=== PATIENT | female | born 1950 | race Two or more races ===

== ENCOUNTER 2025-03-11 13:17 | Inpatient (IN) | payer MEDICARE, BC ==
[~2025-03-11] VITALS: Ht 154.9 cm; Wt 92.7 kg
--- NOTE | 2025-03-11 14:30 | DVH ---
CLINICAL INDICATION: Pain, fracture TECHNIQUE: 3 radiographic views of the right shoulder were obtained. Comparison: None FINDINGS/IMPRESSION: Comminuted and displaced humeral head fracture with anterior inferior shoulder dislocation.
--- NOTE | 2025-03-11 14:32 | ED.PDOC ---
History of Present Illness HPI Comments 74-year-old female presents to the ER with a prior medical history of right shoulder fracture, TIA, AFib, anxiety, depression: Surgical history of cholecystectomy, in the chief complaint of upper extremity. In the has a slip and fall on Tuesday and went to [facility] ER where she had a T of the head and an x-ray as well wear the found out that the patient had a fractured her right shoulder was given a sling, then sent home. Patient went to see her PCP afterwards which is Dr. Collins, and was sent to [facility] with the patient has bruising on the left knee, guarding the right shoulder were this is and refusing to let employ use touch the extremity. De nies chills, fever, N/V/D, SOB, CP. No other associated symptoms, modifiers, recent injuries or sick contacts present at this time. 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 CORRUGATOR OPERATOR HELPER History Family History Family History: Reviewed,noncontributory to illness, Unknown Social History Smoker: Non-Smoker Alcohol: Denies ETOH Use Drugs: Denies Drug Use Lives In: Home Constitutional: denies: chills, diaphoresis, fatigue, fever, malaise, sweats, weakness, others EENTM: denies: blurred vision, double vision, ear bleeding, ear discharge, ear drainage, ear pain, ear ringing, eye pain, eye redness, hearing loss, mouth pain, mouth swelling, nasal discharge, nose bleeding, nose congestion, nose pain, photophobia, tearing, throat pain, throat swelling, voice changes, others Respiratory: denies: cough, hemoptysis, orthopnea, SOB at rest, shortness of breath, SOB with excertion, stridor, wheezing, others Cardiovascular: denies: chest pain, dizzy spells, diaphoresis, Dyspnea on exertion, edema, irregular heart beat, left arm pain, lightheadedness, palpitations, PND, syncope, others Gastrointestinal: denies: abdomen distended, abdominal pain, blood streaked bowels, constipated, diarrhea, dysphagia, difficulty swallowing, hematemesis, melena, nausea, poor appetite, poor fluid intake, rectal bleeding, rectal pain, vomiting, others Genitourinary: denies: abnormal vagina bleeding, burning, dyspareunia, dysuria, flank pain, frequency, hematuria, incontinence, pain, , vagina d ischarge, urgency, others Neurological: denies: dizziness, fainting, headache, left sided numbness, left sided weakness, numbness, paresthesia, pre-existing deficit, right sided numbness, right sided weakness, seizure, speech problems, tingling, tremors, weakness, others Musculoskeletal: reports: others (Right shoulder it is fractured); denies: back pain, gout, joint pain, joint swelling, muscle pain, muscle stiffness, neck pain Integumetry: reports: bruises (Left knee); denies: change in color, change in hair/nails, dryness, laceration, lesions, lumps, rash, wounds, others Allergic/Immunocompromised: denies: Difficulty Healing, Frequent Infections, Hives, Itching, others Hematologic/Lymphatic: denies: anemia, blood clots, easy bleeding, easy bruising, swollen glands, others Endocrine: denies: excessive hunger, excessive sweating, excessive thirst, excessive urination, flushing, intolerance to cold, intolerance to heat, unexplained weight gain, unexplained weight loss, others Psychiatric: denies: anxiety, bipolar disorder, depression, hopeless, panic disorder, schizophrenia, sleepless, suicidal, others All Other Systems: Reviewed and Negative Physical Exam Exam Comments Bruising on the left knee, guarding right shoulder and refusing to let employees touch the extremity General Appearance: No Apparent Distress, Normal HEENT: Normal ENT Inspection, Pharynx Normal, TMs Normal Neck: Full Range of Motion, Non-Tender, Normal, Normal Inspection Respiratory: Chest Non-Tender, Lungs Clear, No Accessory Muscle Use, No Respiratory Distress, Normal Breath Sounds Cardiovascular: No Edema, No JVD, No Murmur, No Gallop, Normal Peripheral Pulses, Regular Rate/Rhythm Breast Exam: Deferred Gastrointestinal: No Organomegaly, Non Tender, No Pulsatile Mass, Normal Bowel Sounds, Soft Genitalia: Deferred Pelvic: Deferred Rectal: Deferred Extremities: No calf tenderness, Normal capillary refill, Normal inspection, Normal range of motion, Non-tender, No pedal edema Musculoskeletal : Apperance: Normal Neurologic: Alert, senior planner II-XII nml as Tested, No Motor Deficits, Normal Affect, Normal Mood, No Sensory Deficits Cerebellar Function: Normal Reflexes: Normal Skin: Dry, Normal Color, Warm Lymphatic: No Adenopathy Was a procedure done? Was a procedure done?: No Differential Dx Considerations may include: shoulder fracture, shoulder dislocation, hematoma, sprain, strain, contusion, neurovascular injuries X-Ray, Labs, Meds, VS Lab Test 03/11/25 14:28 Range/Units White Blood Count Pending Red Blood Count Pending Hemoglobin Pending Hematocrit Pending Mean Corpuscular Volume Pending Mean Corpuscular Hemoglobin Pending Mean Corpuscular Hemoglobin Concent Pending Red Cell Distribution Width Pending Platelet Count Pending Mean Platelet Volume Pending Neutrophils (%) (Auto) Pending Lymphocytes (%) (Auto) Pending Monocytes (%) (Auto) Pending Basophils (%) (Auto) Pending Neutrophils # (Auto) Pending Lymphocytes # (Auto) Pending Monocytes # (Auto) Pending Sodium Level Pending Potassium Level Pending Chloride Level Pending Carbon Dioxide Level Pending Anion Gap Pending Blood Urea Nitrogen Pending Creatinine Pending Glomerular Filtration Rate Calc Pending BUN/Creatinine Ratio Pending Serum Glucose Pending Calcium Level Pending Time of 1ST Reevaluation: 14:40 Reevaluation 1ST: Unchanged Consultation: Other (Dr Pham) Patient Education/Counseling: Diagnosis, Treatment, Prognosis, Need For Follow Up Family Education/Counseling: No Family Present SEPSIS Sepsis Screen Physician Orders Complete Blood Count (03/11/25 14:00) Basic Metabolic Panel (03/11/25 14:00) R Shoulder 2+ View Xray (03/11/25 14:00) Laboratory Tests Test 03/11/25 14:28 White Blood Count Pending Departure 1 Departure Time of Disposition: 14:37 Impression: Primary Impression: Humeral fracture Disposition: ADMITTED INPATIENT Admit to: Med Surg Condition: Serious Discharged With: Self Critical Care Note Critical Care Time?: No Stability Stability form required: No I personally scribed for ERINN SHARMA MD ([email or web address]) on 03/11/25 at 14:32. E lectronically submitted by Everton Hansen ([email or web address]). ERINN SHARMA MD Mar 11, 2025 14:32
[2025-03-11 14:43] LABS: Hematocrit 40.2 % (36.0-46.0); Hemoglobin 13.3 g/dL (12.2-16.2); Mean Corpuscular Hemoglobin 29.2 pg (28.0-32.0); Mean Corpuscular Volume 88.2 fL (80.0-100.0); Nucleated Red Blood Cells % 0.0 %
[2025-03-11 14:50] LABS: Chloride 106 mmol/L (98-107); Sodium 140 mmol/L (136-145)
[2025-03-11 14:51] LABS: Anion Gap 8 (5-15); Calcium 9.6 mg/dL (8.7-10.4); Carbon Dioxide 26 mmol/L (20-31)
[2025-03-11 14:56] LABS: BUN/Creatinine Ratio 27.6 (10.0-20.0)
[2025-03-11 15:04] LABS: Blood Urea Nitrogen 24 mg/dL (9-23); Glucose 155 mg/dL (74-106); Potassium 3.5 mmol/L (3.5-5.1)
[2025-03-11] MEDS: fentaNYL CITRATE 100 MCG/2 ML VL IV ONE (15:45)
--- NOTE | 2025-03-11 16:26 | DVHHP2 ---
Admitting Diagnosis: Right shoulder fracture History of Present Illness 74 y/o female patient presents with right shoulder fracture. Patient states she had a fall on Tuesday and was seen at [facility] where she was dx with right shoulder fracture. Patient was then seen by her PCP Dr. Collins who referred her to this facility. While in the emergency department the patient was evaluated by the provider, As per provider: Labs, vital signs, and imagining monitored. Patient will be admitted for further evaluation and treatment. I discussed admission with the patient/family and is in agreement to treatment plan. Allergies: Coded Allergies: Codeine (Verified Allergy, Unknown, 03/11/25) Home Meds Reported Medications Pantoprazole Sodium Sesquihydr (Protonix) 40 Mg Tab, 40 MG PO DAILY, #30 TAB 03/12/25 Lorazepam (Lorazepam) 1 Mg Tab, 1 TAB PO TID, #90 TAB 03/12/25 Sertraline Hcl (Sertraline Hcl) 100 Mg Tab, 1 TAB PO BID 03/11/25 Diltiazem HCl Coated Beads (Diltiazem Hydrochloride E) 180 Mg Cap, 1 CAP PO DAILY 03/11/25 Losartan Potassium (Losartan Potassium) 25 Mg Tab, 1 TAB PO DAILY 03/11/25 Current Medications Current Medications Medications (Trade) Dose Ordered Sig/Carolann Route PRN Reason Start Time Stop Time Status Last Admin Pantoprazole Sodium (Protonix) 40 mg DAILY IV 03/12/25 10:00 03/12/25 09:12 Losartan Potassium (Cozaar Tablet) 25 mg DAILY PO 03/12/25 10:00 03/12/25 09:15 Diltiazem HCl (Cardizem LA Capsule) 180 mg DAILY PO 03/12/25 10:00 03/12/25 09:15 Sertraline HCl (Zoloft) 100 mg BID PO 03/11/25 22:00 03/12/25 09:15 Sotalol HCl (Betapace) 80 mg BID PO 03/12/25 22:00 Sodium Chloride 1,000 ml @ 60 mls/hr [id number] IV 03/12/25 10:00 03/12/25 10:19 DC Digoxin (Lanoxin Tablet) 0.125 mg DAILY PO 03/13/25 10:00 Review of Systems Constitutional: denies chills, denies fever, denies malaise Eyes: denies eye pain, denies vision change ENT: denies ear pain, denies headache, denies nasal congestion, denies painful swallowing, denies voice change Cardiovascular: denies chest pain, denies edema, denies orthopnea, denies palp itations, denies paroxysmal nocturnal dyspnea Respiratory: denies cough, denies shortness of breath Gastrointestinal: denies constipation, denies diarrhea, denies nausea, denies vomiting Genitourinary: denies dysuria, denies frequent urination, denies urethral discharge Musculoskeletal: denies back pain, denies joint pain, denies muscle pain Skin: denies bruising, denies itching, denies rash Neurological: denies focal weakness, denies headache, denies sensory changes Psychiatric: denies anxiety, denies depression Endocrine: denies polydipsia, denies polyuria Hematologic/Lymphatic: denies easy bleeding, denies easy bruising, denies enlarged lymph nodes Allergic/Immunologic: denies allergy, denies hives Vital Signs Vital Signs Date Time Temp Pulse Resp B/P (MAP) Pulse Ox O2 Delivery O2 Flow Rate FiO2 03/12/25 17:17 97.9 98 20 119/64 (82) 96 97.9 03/12/25 08:00 Room Air* 0 21 Physical Exam General Appearance: alert, no distress HEENT: EOMI, PERRLA, normal external inspect of ears, no icterus, no nasal drainage Neck: no carotid bruit, no jugular venous distention (JVD), no lymphadenopathy Chest: normal thorax Respiratory: clear to auscultation, normal air movement Cardiovascular: regular rate and rhythm, no diastolic murmur, no jugular venous distention (JVD), no rub, no systolic murmur Abdominal: soft, no hepatomegaly, no mass, no splenomegaly, no tenderness Genitourinary: grossly normal external Musculoskeletal: no joint tenderness, no swelling Extremities: normal pulses, no calf tenderness, no clubbing, no cyanosis, no edema Skin: no bruising, no jaundice, no rash Neurological: alert, No focal deficit SEPSIS Sepsis Screen Date sepsis recognized/suspect: Mar 11, 2025 Time Sepsis recognized/suspect: 1342 Recent Procedure: No On Antibiotic Therapy: No Respiratory Rate >20: No Heart Rate >90: Yes Temp<36 C (96.8 F) or >38.3 C: No SBP <90 or MAP <65 mmHG: No New Acute Mental Status Change: No Is the patient on CPAP, BIPAP,: No Physician Orders R Shoulder 2+ View Xray (03/11/25 14:00) Admit (03/11/25 16:19) Code Status (03/11/25 16:19) Hydrocodone-Acet 5/325mg Tab (Elmer 5/32 (03/11/25 16:30) Ondansetron Hcl (Zofran) (03/11/25 16:30) Condition: Stable (03/11/25 16:19) Acetaminophen Tablet (Tylenol Tablet) (03/11/25 16:30) Sequential Compression Device (03/11/25 ) Nitroglycerin Sublingual (Ntrostat Subli (03/11/25 16:30) Stat Ekg For Chest Pain (03/11/25 16:19) Notify Md Of Changes From Base (03/11/25 16:19) Bank Boss For 24 Hours (03/11/25 16:19) Emergency Dysrhythmia Protocol (03/11/25 16:19) Rhythm Strips Once Every Shift (03/11/25 16:19) Oxygen By Nasal Cannula (03/11/25 16:19) *Consult Dr. Collins (03/11/25 16:19) *Consult Dr. Saleem Saunders (03/11/25 16:19) Pantoprazole (Protonix) (03/12/25 10:00) Hydromorphone Injection (Dilaudid Inject (03/11/25 16:30) Diphenhdramine Injection (Benadryl Injec (03/11/25 16:30) Hydralazine Injection (Apresoline Inject (03/11/25 16:30) Lactated Ringer's (03/11/25 16:30) Losartan Tablet (Cozaar Tablet) (03/12/25 10:00) Diltiazem Er Capsule (Cardizem La Capsul (03/12/25 10:00) Sertraline Hcl (Zoloft) (03/11/25 22:00) * Broadcast Meteorologist Consult (03/12/25 ) Chest Xray 1 View (03/12/25 06:14) Ct R Shoulder Wo Contrast (03/12/25 06:14) Npo (Nothing By Mouth) Diet (03/13/25 Breakfast) Obtain Consent For: (03/12/25 06:14) Obtain Consent For Anesthesia (03/12/25 06:14) Sotalol Hcl (Betapace) (03/12/25 22:00) Echo 2d Mode Cardiac Dop (03/12/25 09:51) Digoxin Tablet (Lanoxin Tablet) (03/13/25 10:00) Vital Signs Date Time Temp Pulse Resp B/P (MAP) Pulse Ox O2 Delivery O2 Flow Rate FiO2 03/12/25 17:17 97.9 98 20 119/64 (82) 96 97.9 03/12/25 14:51 98 20 119/64 03/12/25 14:21 82 16 118/67 03/12/25 13:00 97.9 104 22 127/69 (88) 97 97.9 03/12/25 12:34 110 03/12/25 11:53 130 114/65 03/12/25 09:15 109 137/68 03/12/25 09:15 137/68 03/12/25 09:00 97.7 102 19 118/75 (89) 94 97.7 03/12/25 08:00 117 03/12/25 08:00 115 Room Air* 0 21 03/12/25 07:09 108 17 137/68 03/12/25 06:39 109 19 137/68 03/12/25 05:00 97.4 119 16 122/85 (97) 94 97.4 03/12/25 01:00 117 16 126/73 (90) 95 03/12/25 00:37 117 16 126/73 03/12/25 00:07 114 17 138/81 03/11/25 23:37 98.9 110 17 138/81 (100) 96 98.9 03/11/25 23:08 Room Air* 0 21 03/11/25 23:08 98.9 110 17 138/81 (100) 96 98.9 03/11/25 23:08 98.9 110 17 138/81 (100) 96 98.9 03/11/25 21:03 109 16 116/78 03/11/25 20:40 111 17 116/78 03/11/25 20:38 111 17 116/78 (91) 96 03/11/25 19:18 98.5 113 20 121/89 (100) 94 98.5 03/11/25 18:09 98.6 102 20 130/76 (94) 100 98.6 03/11/25 18:09 102 20 96 Room Air 03/11/25 15:45 123/74 03/11/25 14:55 Room Air* 0 21 03/11/25 13:42 98.3 114 20 123/84 (97) 98 98.3 Laboratory Tests Test 03/11/25 14:28 03/12/25 06:33 White Blood Count 9.7 10^3/uL (4.4-10.8) 7.0 10^3/uL (4.4-10.8) # Medications Medications Dose Ordered Sig/Carolann Route Start Time Stop Time Status Last Admin Dose Admin Digoxin 0.125 mg ONCE ONCE PO 03/12/25 11:45 03/12/25 12:14 DC 03/12/25 12:34 Diltiazem HCl 180 mg DAILY PO 03/12/25 10:00 03/12/25 09:15 Losartan Potassium 25 mg DAILY PO 03/12/25 10:00 03/12/25 09:15 Pantoprazole Sodium 40 mg DAILY IV 03/12/25 10:00 03/12/25 09:12 Sotalol HCl 80 mg ONCE ONCE PO 03/12/25 10:45 03/12/25 10:46 DC 03/12/25 11:53 Results Labs Test 03/12/25 08:28 03/12/25 06:33 Range/Units Prothrombin Time 10.4 9.3-11.8 sec Prothrombin Time INR 0.98 0.9-1.15 White Blood Count 7.0 # 4.4-10.8 10^3/uL Red Blood Count 4.18 4.0-5.20 10^6/uL Hemoglobin 12.2 12.2-16.2 g/dL Hematocrit 37.0 36.0-46.0 % Mean Corpuscular Volume 88.4 80.0-100.0 fL Mean Corpuscular Hemoglobin 29.2 28.0-32.0 pg Mean Corpuscular Hemoglobin Concent 33.0 32.0-36.0 g/dL Red Cell Distribution Width 15.1 H 11.8-14.3 % Platelet Count 182 140-450 10^3/uL Mean Platelet Volume 7.5 6.9-10.8 fL Neutrophils (%) (Auto) 72.0 37.0-80.0 % Lymphocytes (%) (Auto) 15.4 10.0-50.0 % Monocytes (%) (Auto) 9.3 0.0-12.0 % Eosinophils (%) (Auto) 2.9 0.0-7.0 % Basophils (%) (Auto) 0.4 0.0-2.0 % Neutrophils # (Auto) 5.0 1.6-8.6 10 ^3/uL Lymphocytes # (Auto) 1.1 0.4-5.4 10 ^3/uL Monocytes # (Auto) 0.6 0-1.3 10 ^3/uL Eosinophils # (Auto) 0.2 0-0.8 10 ^3/uL Basophils # (Auto) 0 0-0.2 10 ^3/uL Nucleated Red Blood Cells 0.0 % Sodium Level 142 136-145 mmol/L Potassium Level 3.3 L 3.5-5.1 mmol/L Chloride Level 106 98-107 mmol/L Carbon Dioxide Level 27 20-31 mmol/L Anion Gap 9 5-15 Blood Urea Nitrogen 25 H 9-23 mg/dL Creatinine 0.65 0.550-1.02 mg/dL Glomerular Filtration Rate Calc 93 >90 mL/min BUN/Creatinine Ratio 38.5 H 10.0-20.0 Serum Glucose 116 H 74-106 mg/dL Calcium Level 9.1 8.7-10.4 mg/dL Total Bilirubin 1.3 H 0.2-1.0 mg/dL Aspartate Amino Transferase (AST) 125 H 13-40 U/L Alanine Aminotransferase (ALT) 102 H 7-40 U/L Alkaline Phosphatase 113 46-116 U/L Total Protein 6.2 5.7-8.2 g/dL Albumin 3.7 3.2-4.8 g/dL Digoxin Level < 0.14 L 0.8-2 ng/mL Microbiology Date/Time Source Procedure Growth Status 03/12/25 05:55 Nose MRSA Screen - Final Complete Plan 1. Fall Monitor 2. Right shoulder fracture Monitor, orthopedic consult, hold anticoagulation for surgery 3. Morbid obesity Monitor 4. Benign essential HTN Monitor, cardiac consult, cardiac diet Plan discussed with: Patient, Other KRAFT,RIOS M WRAP CHECKER Mar 11, 2025 16:26
[2025-03-11] MEDS ORDERED: LOS25T PO (16:27)
[2025-03-11] MEDS ORDERED: DILT-26 PO (16:27)
[2025-03-11] MEDS ORDERED: SERT-160 PO (16:27)
[2025-03-11] MEDS ORDERED: NITROGLYCERIN 0.4 MG SL TAB SL PRN (16:30)
[2025-03-11] MEDS ORDERED: ONDANSETRON HCL 4 MG/2 ML VIAL IV PRN (16:30)
[2025-03-11] MEDS ORDERED: diphenhdrAMINE HCL 50 MG/1 ML VL IV PRN (16:30)
[2025-03-11] MEDS ORDERED: ACETAMINOPHEN 325 MG TAB PO PRN (16:30)
[2025-03-11] MEDS: LACTATED RINGER'S 1,000 ML IV SCH (16:30)
[2025-03-11] MEDS: ONDANSETRON HCL 4 MG/2 ML VIAL IV ONE (20:34)
[2025-03-11] MEDS: MORPHINE SULFATE 4 MG/ML SYR/VIAL IV ONE (20:40)
[2025-03-11 23:08] VITALS: BP 138/81; PULSE 110; RESP 17; TEMP 98.9; O2SAT 96
[2025-03-11 23:37] VITALS: BP 138/81; PULSE 110; RESP 17; TEMP 98.9; O2SAT 96
[2025-03-12] VITALS (8 sets, daily range): BP systolic 101–127; BP diastolic 58–85; PULSE 95–119; RESP 16–22; TEMP 96.1–98; O2SAT 94–97
[2025-03-12] MEDS: SERTRALINE HCL 50 MG TAB PO SCH (00:04)
[2025-03-12] MEDS: HYDROmorphone HCL 2 MG/ML VL/or syr IV PRN (00:07)
[2025-03-12] MEDS ORDERED: LORA-1123 PO (04:25)
[2025-03-12] MEDS ORDERED: PANT40TA2 PO (04:25)
[2025-03-12 07:06] LABS: Hematocrit 37.0 % (36.0-46.0); Hemoglobin 12.2 g/dL (12.2-16.2); Mean Corpuscular Hemoglobin 29.2 pg (28.0-32.0); Mean Corpuscular Volume 88.4 fL (80.0-100.0); Nucleated Red Blood Cells % 0.0 %
[2025-03-12 07:20] LABS: Albumin 3.7 g/dL (3.2-4.8); Alkaline Phosphatase 113 U/L (46-116); Anion Gap 9 (5-15); BUN/Creatinine Ratio 38.5 (10.0-20.0); Calcium 9.1 mg/dL (8.7-10.4); Carbon Dioxide 27 mmol/L (20-31); Chloride 106 mmol/L (98-107); Sodium 142 mmol/L (136-145); Total Protein 6.2 g/dL (5.7-8.2)
[2025-03-12 07:21] LABS: Alanine Aminotransferase 102 U/L (7-40); Bilirubin, Total 1.3 mg/dL (0.2-1.0); Blood Urea Nitrogen 25 mg/dL (9-23); Glucose 116 mg/dL (74-106); Potassium 3.3 mmol/L (3.5-5.1)
--- NOTE | 2025-03-12 08:47 | DVH ---
EXAM: XY CHEST XRAY 1 VIEW Indication: pain Technique: Single frontal view of the chest was obtained Comparison: None FINDINGS: Lines and Tubes: None Lungs: No focal consolidation. Pleura: No effusion. No pneumothorax. Cardiomediastinal contours: Unremarkable Bones: No acute osseous abnormality. IMPRESSION: No acute cardiopulmonary disease.
[2025-03-12 08:53] LABS: INR 0.98 (0.9-1.15); Prothrombin Time 10.4 sec (9.3-11.8)
[2025-03-12] MEDS: PANTOPRAZOLE 40 MG/10 ML VIAL INJ IV SCH (09:12)
[2025-03-12] MEDS: LOSARTAN POTASSIUM 25 MG TAB PO SCH (09:15)
[2025-03-12] MEDS ORDERED: SOTALOL HCL 80 MG TAB PO ONE (10:00)
[2025-03-12] MEDS ORDERED: SODIUM CHLORIDE 0.9% 1,000 ML IV SCH (10:00)
--- NOTE | 2025-03-12 10:22 | DVHINCON2 ---
Date of service: Mar 12, 2025 History of Present Illness HPI Patient is a 74-year-old female who presented to hospital with right shoulder fracture. Few days before presentation, the patient had a fall/mechanical fall and suffered injury to the right shoulder. She presented to [facility] and got a sling. Later presented to outside primary care physician and was transferred to our facility to have orthopedic surgery on the shoulder fr acture/dislocation. Patient is known to our practice from outside and before. Does have history of persistent atrial fibrillation. Cardiology is involved for cardiac aspects of care. She also has history of Watchman (was put in June 2024) and is on aspirin as outpatient. Denies chest pains/palpitations/shortness of breath. Mostly complains of discomfort/swelling of the right shoulder/right upper extremity. Home Meds Reported Medications Pantoprazole Sodium Sesquihydr (Protonix) 40 Mg Tab, 40 MG PO DAILY, #30 TAB 03/12/25 Lorazepam (Lorazepam) 1 Mg Tab, 1 TAB PO TID, #90 TAB 03/12/25 Sertraline Hcl (Sertraline Hcl) 100 Mg Tab, 1 TAB PO BID 03/11/25 Diltiazem HCl Coated Beads (Diltiazem Hydrochloride E) 180 Mg Cap, 1 CAP PO DAILY 03/11/25 Losartan Potassium (Losartan Potassium) 25 Mg Tab, 1 TAB PO DAILY 03/11/25 Past Medical History Others Past medical history includes obesity, hypertension, DJD of right knee, peripheral artery disease, GERD, persistent atrial fibrillation, old history of TIA, anxiety/depression, history of kidney stones/kidney cyst, fatty liver, status post cholecystectomy/ and appendectomy. She did have Watchman device in June 2024. Patient Family History: FH: Parkinson's disease G8 FATHER FH: colon cancer FH: depression G8 MOTHER Smoker: No Hx (Negative) Alocohol: None Drugs: None Lives with: With family Review of Systems Eyes: No symptom reported Pulmonary/Respiratory: No symptom reported Gastrointestinal: No symptom reported All Other Systems 14 point review of system was performed. Relevant findings as per above and as per HPI. Otherwise negative. H&P Exam Vital Signs Vital Signs Date Time Temp Pulse Resp B/P (MAP) Pulse Ox O2 Delivery O2 Flow Rate FiO2 03/12/25 09:15 109 137/68 03/12/25 07:09 17 03/12/25 05:00 97.4 94 97.4 03/11/25 23:08 Room Air* 0 21 General Appeara: Well developed, Obese Head Exam: Normal inspection Neck Exam: Normal inspection Eye Exam: bilateral eye PERRL Nasal Exam: Normal inspection Pulmonary/Respiratory: Normal inspection, Lungs clear Cardiovascular/Chest: Tachycardia, Systolic murmur, Irregularly irregular Peripheral Pulses: 2+ carotid (R), 2+ carotid (L), 2+ femoral (R), 2+ femoral (L), 2+ dorsalis pedis (R), 2+ dorsalis pedis (L) Abdominal Exam: Normal bowel sounds, Soft, No hepatospenomegaly Neuro/Mental St: Alert, Oriented Appearance: Appropriate appearance Eye contact/ Speech: Cooperative Labs/Xrays Labs Test 03/12/25 08:28 03/12/25 06:33 Range/Units Prothrombin Time 10.4 9.3-11.8 sec Prothrombin Time INR 0.98 0.9-1.15 White Blood Count 7.0 # 4.4-10.8 10^3/uL Red Blood Count 4.18 4.0-5.20 10^6/uL Hemoglobin 12.2 12.2-16.2 g/dL Hematocrit 37.0 36.0-46.0 % Mean Corpuscular Volume 88.4 80.0-100.0 fL Mean Corpuscular Hemoglobin 29.2 28.0-32.0 pg Mean Corpuscular Hemoglobin Concent 33.0 32.0-36.0 g/dL Red Cell Distribution Width 15.1 H 11.8-14.3 % Platelet Count 182 140-450 10^3/uL Mean Platelet Volume 7.5 6.9-10.8 fL Neutrophils (%) (Auto) 72.0 37.0-80.0 % Lymphocytes (%) (Auto) 15.4 10.0-50.0 % Monocytes (%) (Auto) 9.3 0.0-12.0 % Eosinophils (%) (Auto) 2.9 0.0-7.0 % Basophils (%) (Auto) 0.4 0.0-2.0 % Neutrophils # (Auto) 5.0 1.6-8.6 10 ^3/uL Lymphocytes # (Auto) 1.1 0.4-5.4 10 ^3/uL Monocytes # (Auto) 0.6 0-1.3 10 ^3/uL Eosinophils # (Auto) 0.2 0-0.8 10 ^3/uL Basophils # (Auto) 0 0-0.2 10 ^3/uL Nucleated Red Blood Cells 0.0 % Sodium Level 142 136-145 mmol/L Potassium Level 3.3 L 3.5-5.1 mmol/L Chloride Level 106 98-107 mmol/L Carbon Dioxide Level 27 20-31 mmol/L Anion Gap 9 5-15 Blood Urea Nitrogen 25 H 9-23 mg/dL Creatinine 0.65 0.550-1.02 mg/dL Glomerular Filtration Rate Calc 93 >90 mL/min BUN/Creatinine Ratio 38.5 H 10.0-20.0 Serum Glucose 116 H 74-106 mg/dL Calcium Level 9.1 8.7-10.4 mg/dL Total Bilirubin 1.3 H 0.2-1.0 mg/dL Aspartate Amino Transferase (AST) 125 H 13-40 U/L Alanine Aminotransferase (ALT) 102 H 7-40 U/L Alkaline Phosphatase 113 46-116 U/L Total Protein 6.2 5.7-8.2 g/dL Albumin 3.7 3.2-4.8 g/dL Assessment/Plan Plan Patient is a 74-year-old female who presented to hospital with right shoulder fracture. Few days before presentation, the patient had a fall/mechanical fall and suffered injury to the right shoulder. She presented to [facility] and got a sling. Later presented to outside primary care physician and was transferred to our facility to have orthopedic surgery on the shoulder fracture/dislocation. Patient is known to our practice from outside and before. Does have history of persistent atrial fibrillation. Cardiology is involved for cardiac aspects of care. She also has history of Watchman (was put in June 2024) and is on aspirin as outpatient. Denies chest pains/palpitations/shortness of breath. Mostly complains of discomfort/swelling of the right shoulder/right upper extremity. Not in acute distress. Lying flat in bed. Morbidly obese. No JVD. Mucosa is pink and wet. Gross swelling/hematoma seen in the right upper shoulder to the right arm. Lungs are clear to auscultation. Not using accessory muscles of breathing. Cardiac: Irregular, tachycardic. Systolic murmur 2/6 in the apex is heard. Abdomen is soft. There is no gross mass. Bowel sound is positive. No hepatomegaly. Extremities do not reveal edema in the lower extremities. Past medical history includes obesity, hypertension, DJD of right knee, peripheral artery disease, GERD, persistent atrial fibrillation, old history of TIA, anxiety/depression, history of kidney stones/kidney cyst, fatty liver, status post cholecystectomy/ and appendectomy. She did have Watchman device in June 2024. Echocardiogram of October 2024 (performed in the office) revealed preserved left ventricular systolic function and no specific valvular disease. Nuclear stress test of April 2024 (performed as outpatient) revealed fixed defect with no ischemia. Ejection fraction was 80%. As outpatient, the patient takes digoxin/sotalol/diltiazem Hemoglobin: 13.3 - 12.2 Creatinine: 0.87 - 0.65 Potassium: 3.5 - 3.3 AST/ALT: 125/102 Right shoulder x-ray revealed: FINDINGS/IMPRESSION: Comminuted and displaced hu meral head fracture with anterior inferior shoulder dislocation. Chest x-ray revealed: IMPRESSION: No acute cardiopulmonary disease. Telemetry reveals: Atrial fibrillation with RVR Patient is a 74-year-old female who presented after mechanical fall with right shoulder fracture/dislocation. Does have baseline history of atrial fibrillation for which has had Watchman device and is off anticoagulation. Usually takes aspirin as outpatient. Does have persistent AFib. As outpatient, the patient is on sotalol/diltiazem and aspirin. Patient does have atrial fibrillation with RVR at the time of evaluation. May have been secondary to not taking her medications (while inpatient) and also some component of dehydration. Cardiac-monsivais, the patient is relatively optimized for orthopedic surgery. Status post mechanical fall Right shoulder fracture/dislocation Persistent AFib AFib with RVR Status post Watchman device Old history of TIA Obesity Depression Cardiac suggestion for management: Manage on telemetry Follow-up on electrolytes and kidney function tests and correct abnormalities. Keep potassium above 4 and magnesium above 2 EKG Echocardiogram Fluid resuscitation is advised Sotalol: 80 mg twice daily Request for digoxin level. Continue digoxin at 125 mcg daily You may consider IV metoprolol/prn for tachyarrhythmia Pain management as per primary team/orthopedic Orthopedic evaluation Consider DVT prophylaxis (Lovenox 40 mg daily) Cardiac-monsivais, the patient is moderate risk patient for moderate risk orthopedic surgery. Cardiac-monsivais, you can proceed with orthopedic surgery under appro priate intra and postoperative hemodynamic monitoring. Avoid hypotension Further evaluation and management depends on the above and clinical course Thank you for consultation A total of 75 minutes was spent reviewing the patient record, examining the patient, making a diagnostic and therapeutic plan, discussing this plan with medical personnel, following up on diagnostic studies and following the patient for clinical stability excluding any and all procedures. At least 50% of this time was spent in direct, [id number] contact. Thank you for allowing me to participate in this patient's care. Further recommendations will depend on patient's clinical course. Please do not hesitate to contact me if you have any questions or concerns. This medical document was created using electronic medical record system with [employer] computerized dictation system. Although this document has been carefully reviewed, there may still be some phonetic and typographical errors. These areas are purely typographical due to the imperfection of the software programs, and do not reflect any compromise in the patient's medical care. Plan discussed with: Patient, Other (nurse) DAMIEN GAMEZ MD Mar 12, 2025 10:22
--- NOTE | 2025-03-12 11:41 | DVHPN2 ---
Progress Note - Dictate Date Seen: Mar 12, 2025 Medical Necessity Reason Pt with a Central, PICC or Fol: No vital signs Vital Sign Date Time Temp Pulse Resp B/P (MAP) Pulse Ox O2 Delivery O2 Flow Rate FiO2 03/12/25 09:15 109 137/68 03/12/25 08:00 Room Air* 0 21 03/12/25 07:09 17 03/12/25 05:00 97.4 94 97.4 Total Intake and Output 03/11/25 03/11/25 03/12/25 15:00 23:00 07:00 Intake Total 0 ml Output Total 1 ml Balance -1 ml medications Current Medications Medications Dose Ordered Sig/Carolann Route Start Time Stop Time Status Last Admin Dose Admin Acetaminophen/ Hydrocodone Bitart 1 tab Q4HP PRN PO 03/11/25 16:30 Ondansetron HCl 4 mg Q4HP PRN IV 03/11/25 16:30 Acetaminophen 650 mg Q6HP PRN PO 03/11/25 16:30 Nitroglycerin 0.4 mg Q5MINP PRN SL 03/11/25 16:30 Pantoprazole Sodium 40 mg DAILY IV 03/12/25 10:00 03/12/25 09:12 40 MG Hydromorphone HCl 0.4 mg Q6HP PRN IV 03/11/25 16:30 03/12/25 06:39 0.4 MG Diphenhydramine HCl 25 mg Q6HP PRN IV 03/11/25 16:30 Hydralazine HCl 10 mg Q6HP PRN IV 03/11/25 16:30 Lactated Ringer's 1,000 ml @ 50 mls/hr Q20H IV 03/11/25 16:30 Losartan Potassium 25 mg DAILY PO 03/12/25 10:00 03/12/25 09:15 25 MG Diltiazem HCl 180 mg DAILY PO 03/12/25 10:00 03/12/25 09:15 180 MG Sertraline HCl 100 mg BID PO 03/11/25 22:00 03/12/25 09:15 100 MG Sotalol HCl 80 mg BID PO 03/12/25 22:00 Digoxin 0.125 mg DAILY PO 03/13/25 10:00 objective General Appearance: alert, no distress HEENT: EOMI, PERRLA, normal external inspect of ears, no icterus, no nasal drainage Neck: no carotid bruit, no jugular venous distention (JVD), no lymphadenopathy Chest: normal thorax Respiratory: clear to auscultation, normal air movement Cardiovascular: regular rate and rhythm, no diastolic murmur, no jugular venous distention (JVD), no rub, no systolic murmur Abdominal: soft, no hepatomegaly, no mass, no splenomegaly, no tenderness Genitourinary: grossly normal external Musculoskeletal: no joint tenderness, no swelling Extremities: normal pulses, no calf tenderness, no clubbing, no cyanosis, no edema Skin: no bruising, no jaundice, no rash Neurological: alert, No focal deficit laboratory and microbiology Laboratory Tests 03/12/25 06:33 Test 03/12/25 06:33 Range/Units Serum Glucose 116 H 74-106 mg/dL Problem List 1. Fall Monitor 2. Right shoulder fracture Monitor, orthopedic consult, hold anticoagulation for surgery 3. Morbid obesity Monitor 4. Benign essential HTN Monitor, cardiac consult, cardiac diet Assessment/Plan Subjective: Patient is awake and alert. Objective: Patient was seen in the room. She has extensive bruising to her right arm. Patient states she had a fall and she was seen at [facility]. They placed her in a sling and sent her home. Patient states she is having a lot of pain. She is requesting to go to [place] half-way facility after she is cleared from the hospital. Plan: Continue current treatment. Patient scheduled later this afternoon with Dr. Saunders for surgery. Pending PT eval and clearance. DC planning to half-way facility. Plan discussed with: Patient, Other RIOS GARNER NP Mar 12, 2025 11:41
[2025-03-12] MEDS: SOTALOL HCL 80 MG TAB PO ONE (11:53)
--- NOTE | 2025-03-12 12:04 | DVHINCON2 ---
Consult Note Consult Consult Note Location: Inpatient [facility] --- Reason for Consult: Evaluation and surgical planning for right shoulder fracture following ground- level fall. --- History of Present Illness: The patient is a 74-year-old female who sustained a ground-level fall onto her right shoulder. She developed immediate pain and ecchymosis, with inability to actively lift the right arm. She initially presented to [place] [facility], followed by appointment with her primary care provider, who referred her to the emergency department [facility]. Imaging in the ED revealed a comminuted fracture of the right proximal humerus involving the humeral head. The patient was subsequently admitted for further management. --- Medical History: per pt Hypertension well controlled on medication Depression and anxiety managed with current regimen Atrial fibrillation s/p Watchman device placement 2023; not on anticoagulation for several months No history of diabetes No history of tobacco use --- Review of Systems: Constitutional: Denies fever or chills Cardiac: History of atrial fibrillation, no current chest pain or palpitations Respiratory: Denies shortness of breath Musculoskeletal: Right shoulder pain, limited range of motion due to fracture Neurologic: No numbness or weakness reported Psychiatric: History of depression/anxiety, well managed --- Physical Examination: General: Alert and oriented, in mild distress due to pain Right Shoulder: Swelling and ecchymosis over anterior and lateral shoulder Marked tenderness to palpation Limited range of motion unable to actively lift arm 2/2 pain No open wounds or skin compromise Neurovascular: Distal sensation and perfusion intact in right upper extremity --- Imaging: X-ray of Right Shoulder: Comminuted fracture of proximal humerus involving the humeral head, anterior inferior shoulder dislocation is also noted CT Scan of Shoulder: Confirms complex, multi-fragmented fracture pattern involving articular surface with anterior inferior dislocation consistent with surgical indication for reverse total shoulder arthroplasty --- Assessment: Comminuted intra-articular fracture of the right proximal humerus (right humeral head fracture) following ground-level fall in elderly patient with history of AFib, HTN, and depression. Fracture is not amenable to conservative management. --- Plan: Proceed with open reduction and internal fixation with reverse shoulder arthroplasty of the right shoulder, planned for tomorrow at approximately 10:00 AM, with Dr. Saunders as the attending surgeon. Cardiac clearance to be obtained today given history of AFib and Watchman device. patient report, she has not been on anticoagulation for several months RECS TO HOSPITAL/MED TEAM Order NPO after midnight Order "Obtain consent" for Open reduction internal fixation with Right reverse shoulder arthroplasty and/or other neccesary procedure , by bedside nurse. Risks, benefits, and alternatives of surgery were discussed in detail with the patient, including but not limited to: Neurovascular injury Infection Hardware failure or loosening dislocation Blood loss and need for transfusion Risk of anesthesia Failure to achieve full range of motion Need for additional surgeries Permanent damage to right shoulder Patient verbalized understanding and is amenable to surgical treatment. Post surgery after discharge patient will followup with Ortho [facility] for 2 weeks followup Plan discussed with: Patient, Other (bedside Nurse) Visit Coding Surgery Date of Service if different f: Mar 12, 2025 Billing Provider: ROSALEE XIE Surgery Visit Codes: 19587 - INP CONSULT <55 MIN ROSALEE XIE Mar 12, 2025 12:04 JACOBO SAUNDERS MD Mar 13, 2025 10:16
[2025-03-12] MEDS: DIGOXIN 0.125 MG TAB PO ONE (12:34)
--- NOTE | 2025-03-12 19:20 | DVHSR ---
APPROVED REPORT EXAM: Two-dimensional and M-mode echocardiogram with Doppler and color Doppler. Blood Pressure: 37/68 mmHg INDICATION Elevated HR RISK FACTORS Height: 61, Weight: 200 DIMENSIONS LVDd (3.8-5.7cm)LA (2D)3.2 (1.9-4.0cm)Aortic Root3.1 (2.0-3.7cm) LVDs (2.5-4.0cm)LA (MM) (1.9-4.0cm)Aortic Cusp Exc1.8 (1.5-2.0cm) EF (%) 61.0 (55-70%)Rt. Atrium5.8 (1.9-4.0cm)Asc. Aorta cm Mitral Valve MitralMitral Stenosis E wave1.15m/sMV Mean GR.mmHg A wavem/sMV Peak GR.81mmHg E/A ratio0.02D MVAcm2 Aortic Valve Aortic ValveAortic Stenosis V10.84m/Lia Mean GR.2mmHg V21.04m/Lia Peak GR.4mmHg LVOT Diameter1.8 (1.8-2.4cm)Doppler AVA2.05cm2 Pulmonic Valve V20.81m/s Tricuspid Valve TR Velocity2.62m/s [id number] Conclusion Left ventricle: Left ventricle is normal-sized with normal systolic function. LVEF was around 61%. There was no gross wall motion abnormality. Moderate right ventricular enlargement was observed. Right ventricular systolic function was normal. Left atrium was mildly enlarged. Right atrium was moderately enlarged. Aortic valve: Aortic valve was trileaflet. There was no aortic insufficiency/stenosis. There was m ild tricuspid/mitral regurgitation. Pulmonary valve was not well visualized. Right ventricular systolic pressure was assessed at 45 mm Hg. IVC was dilated.
--- NOTE | 2025-03-12 20:10 | DVH ---
EXAM: CT CT R SHOULDER WO CONTRAST INDICATION: fracture TECHNIQUE: Axial images of the right shoulder have been obtained along with coronal and sagittal refo rmatted images. All CT scans at this facility use dose modulation, iterative reconstruction, and/or w eight based dosing when appropriate to reduce radiation dose to as low as reasonably achievable. COMPARISON: None FINDINGS: BONES: Significant comminuted displaced fracture of the right humeral head with posterior inferior di splacement of the right humeral head. Proximal migration of the distal humeral shaft width evidence of comminution. MUSCLES: Significant surrounding muscular edema likely compatible with concomitant muscle strains JOINT SPACES: Large glenohumeral joint effusion. TENDONS/LIGAMENTS: Limited evaluation however likely complete disruption of the superior rotator cuff given significant displacement of the humeral head comminution of the tuberosities OTHER: None. IMPRESSION: 1. Significantly displaced comminuted right proximal humeral fracture. 2. Inferior medial significant displacement of the majority of the humeral head fragment. 3. Subsequent proximal migration of the distal humeral shaft.
[2025-03-12] MEDS: SOTALOL HCL 80 MG TAB PO SCH (21:44)
[2025-03-12] MEDS: HYDROcodone-ACET 5/325MG TAB PO PRN (23:48)
[2025-03-13] VITALS (11 sets, daily range): BP systolic 121–169; BP diastolic 55–90; PULSE 82–114; RESP 16–24; TEMP 95.7–98.1; O2SAT 94–100
[2025-03-13] MEDS: hydrALAZINE HCL 20 MG/ML VL IV PRN (08:05)
--- NOTE | 2025-03-13 08:13 | DVHPN2 ---
Progress Note - Dictate Date Seen: Mar 13, 2025 Medical Necessity Reason Pt with a Central, PICC or Fol: No vital signs Vital Sign Date Time Temp Pulse Resp B/P (MAP) Pulse Ox O2 Delivery O2 Flow Rate FiO2 03/13/25 06:35 89 16 142/62 03/13/25 05:00 95.7 96 95.7 03/12/25 20:00 Room Air* 0 21 Total Intake and Output 03/12/25 03/12/25 03/13/25 15:00 23:00 07:00 Intake Total 200 ml Balance 200 ml medications Current Medications Medications Dose Ordered Sig/Carolann Route Start Time Stop Time Status Last Admin Dose Admin Acetaminophen/ Hydrocodone Bitart 1 tab Q4HP PRN PO 03/11/25 16:30 03/12/25 23:48 1 TAB Ondansetron HCl 4 mg Q4HP PRN IV 03/11/25 16:30 Acetaminophen 650 mg Q6HP PRN PO 03/11/25 16:30 Nitroglycerin 0.4 mg Q5MINP PRN SL 03/11/25 16:30 Pantoprazole Sodium 40 mg DAILY IV 03/12/25 10:00 03/12/25 09:12 40 MG Hydromorphone HCl 0.4 mg Q6HP PRN IV 03/11/25 16:30 03/13/25 06:35 0.4 MG Diphenhydramine HCl 25 mg Q6HP PRN IV 03/11/25 16:30 Hydralazine HCl 10 mg Q6HP PRN IV 03/11/25 16:30 Lactated Ringer's 1,000 ml @ 50 mls/hr Q20H IV 03/11/25 16:30 03/12/25 14:00 50 MLS/HR Losartan Potassium 25 mg DAILY PO 03/12/25 10:00 03/12/25 09:15 25 MG Diltiazem HCl 180 mg DAILY PO 03/12/25 10:00 03/12/25 09:15 180 MG Sertraline HCl 100 mg BID PO 03/11/25 22:00 03/12/25 21:44 100 MG Sotalol HCl 80 mg BID PO 03/12/25 22:00 03/12/25 21:44 80 MG Digoxin 0.125 mg DAILY PO 03/13/25 10:00 laboratory and microbiology Laboratory Tests 03/12/25 06:33 Test 03/12/25 06:33 Range/Units Serum Glucose 116 H 74-106 mg/dL Assessment/Plan Patient is a 74-year-old female who presented to hospital with right shoulder fracture. Few days before presentation, the patient had a fall/mechanical fall and suffered injury to the right shoulder. She presented to [facility] and got a sling. Later presented to outside primary care physician and was transferred to our facility to have orthopedic surgery on the shoulder fracture/dislocation. Patient is known to our practice from outside and before. Does have history of persistent atrial fibrillation. Cardiology is involved for cardiac aspects of care. She also has history of Watchman (was put in June 2024) and is on aspirin as outpatient. Denies chest pains/palpitations/shortness of breath. Mostly complains of discomfort/swelling of the right shoulder/right upper extremity. Not in acute distress. Lying flat in bed. Morbidly obese. No JVD. Mucosa is pink and wet. Gross swelling/hematoma seen in the right upper shoulder to the right arm. Lungs are clear to auscultation. Not using accessory muscles of breathing. Cardiac: Irregular, tachycardic. Systolic murmur 2/6 in the apex is heard. Abdomen is soft. There is no gross mass. Bowel sound is positive. No hepatomegaly. Extremities do not reveal edema in the lower extremities. Past medical history includes obesity, hypertension, DJD of right knee, peripheral artery disease, GERD, persistent atrial fibrillation, old history of TIA, anxiety/depression, history of kidney stones/kidney cyst, fatty liver, status post cholecystectomy/ and appendectomy. She did have Watchman device in June 2024. Echocardiogram of October 2024 (performed in the office) revealed preserved left ventricular systolic function and no specific valvular disease. Nuclear stress test of April 2024 (performed as outpatient) revealed fixed defect with no ischemia. Ejection fraction was 80%. As outpatient, the patient takes digoxin/sotalol/diltiazem Hemoglobin: 13.3 - 12.2 Creatinine: 0.87 - 0.65 Potassium: 3.5 - 3.3 AST/ALT: 125/102 Digoxin level: <0.14 Right shoulder x-ray revealed: FINDINGS/IMPRESSION: Comminuted and displaced humeral head fracture with anterior inferior shoulder dislocation. Chest x-ray revealed: IMPRESSION: No acute cardiopulmonary disease. Shoulder CT revealed: IMPRESSION: 1. Significantly displaced comminuted right proximal humeral fracture. 2. Inferior medial significant displacement of the majority of the humeral head fragment. 3. Subsequent proximal migration of the distal humeral shaft. Telemetry reveals: Atrial fibrillation with RVR. Later: moderate ventricular response Echocardiogram revealed: Left ventricle: Left ventricle is normal-sized with normal systolic function. LVEF was around 61%. There was no gross wall motion abnormality. Moderate right ventricular enlargement was observed. Right ventricular systolic function was normal. Left atrium was mildly enlarged. Right atrium was moderately enlarged. Aortic valve: Aortic valve was trileaflet. There was no aortic insufficiency/stenosis. There was mild tricuspid/mitral regurgitation. Pulmonary valve was not well visualized. Right ventricular systolic pressure was assessed at 45 mm Hg. IVC was dilated. Patient is a 74-year-old female who presented after mechanical fall with right shoulder fracture/dislocation. Does have baseline history of atrial fibrillation for which has had Watchman device and is off anticoagulation. Usually takes aspirin as outpatient. Does have persistent AFib. As outpatient, the patient is on sotalol/diltiazem and aspirin. Patient does have atrial fibrillation with RVR, on arrival, later rate: controlled. Cardiac-monsivais, the patient is relatively optimized for orthopedic surgery. Status post mechanical fall Right shoulder fracture/dislocation Persistent AFib AFib with RVR Status post Watchman device Old history of TIA Obesity Depression Cardiac suggestion for management: Manage on telemetry Follow-up on electrolytes and kidney function tests and correct abnormalities. Keep potassium above 4 and magnesium above 2 Continue Sotalol Continue digoxin You may consider IV metoprolol/prn for tachyarrhythmia Pain management as per primary team/orthopedic Consider DVT prophylaxis (Lovenox 40 mg daily): as per Orthopaedic Cardiac-monsivais, the patient is moderate risk patient for moderate risk orthopedic surgery. Cardiac-monsivais, you can proceed with orthopedic surgery under appropriate intra and postoperative hemodynamic monitoring. Avoid hypotension Further evaluation and management depends on the above and clinical course A total of 55 minutes was spent reviewing the patient record, examining the patient, making a diagnostic and therapeutic plan, discussing this plan with medical personnel, following up on diagnostic studies and following the patient for clinical stability excluding any and all procedures. At least 50% of this time was spent in direct, [id number] contact. Thank you for allowing me to participate in this patient's care. Further recommendations will depend on patient's clinical course. Please do not hesitate to contact me if you have any questions or concerns. This medical document was created using electronic medical record system with [employer] computerized dictation system. Although this document has been carefully reviewed, there may still be some phonetic and typographical errors. These areas are purely typographical due to the imperfection of the software programs, and do not reflect any compromise in the patient's medical care. Plan discussed with: Patient, Other (nurse) DAMIEN GAMEZ MD Mar 13, 2025 08:13
[2025-03-13] MEDS: POTASSIUM CHL 20 Meq TABLET PO ONE (08:55)
[2025-03-13] MEDS: DIGOXIN 0.125 MG TAB PO SCH (10:00)
[2025-03-13] MEDS: CEFEPIME 1GM/ 50ML 50 ML IV ONE (10:19)
[2025-03-13] MEDS: VANCOMYCIN HCL 1000 MG VL ONE (10:20)
[2025-03-13] MEDS ORDERED: fentaNYL CITRATE 100 MCG/2 ML VL ONE (10:24)
[2025-03-13] MEDS ORDERED: METOCLOPRAMIDE HCL 5MG/ml INJ 2ml VIAL ONE (10:24)
[2025-03-13] MEDS ORDERED: MIDAZOLAM HCL 2MG/2ML 2ml VIAL (1mg/ml) ONE (10:24)
[2025-03-13] MEDS ORDERED: LIDOCAINE W/ EPINEPHRINE 1% 20ML VIAL ONE (10:24)
[2025-03-13] MEDS ORDERED: ONDANSETRON HCL 4 MG/2 ML VIAL ONE (10:24)
[2025-03-13] MEDS ORDERED: MORPHINE SULF PF 5 MG/10 ML VIAL ONE ×2 (10:25→11:20)
[2025-03-13] MEDS ORDERED: KETOROLAC TROMETH 30 MG/ML 1ML VIAL ONE ×2 (10:25→11:20)
[2025-03-13] MEDS ORDERED: LIDOCAINE 1% INJ PF 5ML AMP ONE (10:25)
[2025-03-13] MEDS ORDERED: PROPOFOL 10 MG/ML 20 ML IV ONE (10:26)
[2025-03-13] MEDS: ceFAZolin 2 GM/D5W50ml 50 ML IV ONE (10:26)
[2025-03-13] MEDS ORDERED: ROCURONIUM 10MG/ML 10ML VIAL IV ONE (10:26)
[2025-03-13] MEDS: BUPIVACAINE 0.25% INJ 50ML VIAL ONE ×2 (10:28→11:45)
--- NOTE | 2025-03-13 10:57 | ECG ---
[facility] Test Date: 2025-03-13 Test Time: 04:18:24 Pat Name: GINI GILBERT Department: Respiratoy Room: 0231T A Gender: F Greens Tier: : 1950 Requested By: JACOBO ROWLAND Order Number: [id number] Reading MD: Juan Miguel Whittington Measurements Intervals Ellis Rate: 83 P: 0 [place]: 0 QRS: 0 QRSD: 85 T: 14 QT: 361 QTc: 425 Interpretive Statements Atrial fibrillation Electronically Signed On 03-18-2025 21:27:29 PDT by Juan Miguel Whittington Please click the below link to view image of tracing.
[2025-03-13] MEDS ORDERED: TRANEXAMIC ACID 10 ML ONE ×2 (11:07→11:08)
[2025-03-13] MEDS ORDERED: hydrALAZINE HCL 20 MG/ML VL ONE (11:20)
[2025-03-13] MEDS ORDERED: HYDROmorphone HCL 2 MG/ML VL/or syr ONE (11:24)
[2025-03-13] MEDS ORDERED: SUGAMMADEX 200mg/2ml Vial (100MG/ML) IV ONE (11:56)
[2025-03-13] MEDS ORDERED: HYDROmorphone HCL 2 MG/ML VL/or syr IV PRN (12:45)
[2025-03-13] MEDS: ONDANSETRON HCL 4 MG/2 ML VIAL IV ONE (12:45)
[2025-03-13] MEDS ORDERED: NALOXONE HCL 0.4 MG/ML VIAL IV PRN (12:45)
[2025-03-13] MEDS ORDERED: hydrALAZINE HCL 20 MG/ML VL IV PRN (12:45)
[2025-03-13] MEDS: ACETAMINOPHEN IV 1000 MG/100ML (10MG/ML) IV ONE (12:45)
--- NOTE | 2025-03-13 13:13 | DVH ---
CLINICAL INDICATION: sp reverse TSA TECHNIQUE: 1 radiographic views of the right shoulder were obtained. Comparison: XY R SHOULDER 2+ VIEW XRAY on DOS: 03/11/25 FINDINGS/IMPRESSION: Postsurgical changes from right shoulder arthroplasty.
[2025-03-13] MEDS: EPINEPHrine HCL 0.5 ML NEB ONE (13:57)
[2025-03-13] MEDS: SODIUM CHLOR 0.9% PF (SALINE LOCK) 10ML VIAL/SYR IV SCH (14:00)
[2025-03-13] MEDS: EPINEPHrine HCL 0.5 ML NEB NEB ONE (14:11)
--- NOTE | 2025-03-13 14:25 | DVHPN2 ---
Progress Note - Dictate Date Seen: Mar 13, 2025 Medical Necessity Reason Pt with a Central, PICC or Fol: No vital signs Vital Sign Date Time Temp Pulse Resp B/P (MAP) Pulse Ox O2 Delivery O2 Flow Rate FiO2 03/13/25 13:57 100 Nasal Cannula* 4 36 03/13/25 13:57 106 24 03/13/25 13:09 127/75 (92) 03/13/25 12:24 97.4 97.4 Total Intake and Output 03/12/25 03/12/25 03/13/25 15:00 23:00 07:00 Intake Total 200 ml Balance 200 ml medications Current Medications Medications Dose Ordered Sig/Carolann Route Start Time Stop Time Status Last Admin Dose Admin Acetaminophen/ Hydrocodone Bitart 1 tab Q4HP PRN PO 03/11/25 16:30 03/13/25 08:05 1 TAB Ondansetron HCl 4 mg Q4HP PRN IV 03/11/25 16:30 Acetaminophen 650 mg Q6HP PRN PO 03/11/25 16:30 Nitroglycerin 0.4 mg Q5MINP PRN SL 03/11/25 16:30 Pantoprazole Sodium 40 mg DAILY IV 03/12/25 10:00 03/12/25 09:12 40 MG Hydromorphone HCl 0.4 mg Q6HP PRN IV 03/11/25 16:30 03/13/25 06:35 0.4 MG Diphenhydramine HCl 25 mg Q6HP PRN IV 03/11/25 16:30 Hydralazine HCl 10 mg Q6HP PRN IV 03/11/25 16:30 03/13/25 08:05 10 MG Lactated Ringer's 1,000 ml @ 50 mls/hr Q20H IV 03/11/25 16:30 03/12/25 14:00 50 MLS/HR Losartan Potassium 25 mg DAILY PO 03/12/25 10:00 03/12/25 09:15 25 MG Diltiazem HCl 180 mg DAILY PO 03/12/25 10:00 03/12/25 09:15 180 MG Sertraline HCl 100 mg BID PO 03/11/25 22:00 03/12/25 21:44 100 MG Sotalol HCl 80 mg BID PO 03/12/25 22:00 03/12/25 21:44 80 MG Digoxin 0.125 mg DAILY PO 03/13/25 10:00 Cefepime HCl 50 ml @ 12.5 mls/hr DAILY IV 03/14/25 10:00 Sodium Chloride 10 ml Q8HR IV 03/13/25 14:00 Cefazolin Sodium 50 ml @ 50 mls/hr Q8H IV 03/13/25 18:30 03/14/25 11:29 objective General Appearance: alert, no distress HEENT: EOMI, PERRLA, normal external inspect of ears, no icterus, no nasal drainage Neck: no carotid bruit, no jugular venous distention (JVD), no lymphadenopathy Chest: normal thorax Respiratory: clear to auscultation, normal air movement Cardiovascular: regular rate and rhythm, no diastolic murmur, no jugular venous distention (JVD), no rub, no systolic murmur Abdominal: soft, no hepatomegaly, no mass, no splenomegaly, no tenderness Genitourinary: grossly normal external Musculoskeletal: no joint tenderness, no swelling Extremities: normal pulses, no calf tenderness, no clubbing, no cyanosis, no edema Skin: no bruising, no jaundice, no rash Neurological: alert, No focal deficit laboratory and microbiology Laboratory Tests 03/12/25 06:33 Test 03/12/25 06:33 Range/Units Serum Glucose 116 H 74-106 mg/dL Problem List 1. Fall Monitor 2. Right shoulder fracture Monitor, orthopedic consult, hold anticoagulation for surgery 3. Morbid obesity Monitor 4. Benign essential HTN Monitor, cardiac consult, cardiac diet Assessment/Plan Subjective: Patient is awake and alert. Objective: Patient was a rapid response today. Patient is status post fall sustaining a right shoulder fracture. Patient status post ORIF today by Doctor Saunders. Patient was brought to the telemetry floor. Post-operatively complaining of shortness of breath and difficulty breathing. Rapid response was called and patient had a racemic Epi and med neb treatments given. Patient is now on a oxy mask, currently doing better. Plan: Continue current treatment. Monitor respiratory status. Pending physical therapy evaluation. maintenance services dispatcher consult for discharge planning to shelter facility. Patient is requesting a facility in [place]. Continue PPI and DVT prophylaxis. Plan discussed with: Patient, Other RIOS GARNER NP Mar 13, 2025 14:25
--- NOTE | 2025-03-13 15:41 | DVHOP2 ---
Operative Report - 2 Report Details Date: 03/13/25 Preop Diagnosis: Right proximal humerus fracture/ dislocation Postop Diagnosis: Right proximal humerus fracture/ dislocation Surgeon: Saleem Rowland MD Product Safety Administrator: Abdirashid JONES Anesthesiologist: Robby KHAN Anesthesia: General, Regional Implant: Shoulder FX Consent: The patient was informed of the risks and benefits of the procedure. These include but are not limited to complications of anesthesia, postoperative infection, incomplete relief of symptoms, recurrence of symptoms, damage to bl ood vessels, nerves and tendons, deep venous thrombosis, pulmonary embolism and possible need for repeat surgery in the future. Estimated Blood Loss: 100 cc Indications for Surgery: Right proximal humerus fracture/ dislocation x 3 days ago with severe pain/swelling Name of Procedure Performed 1. Right reverse total shoulder arthroplasty for complex fracture/dislocation 2. Right open biceps tenodesis Procedure Details Procedure Details: The patient was taken to the operative suite, placed on the operative field. Department of Anesthesia administered general anesthetic. Once adequately sedated, the patient was placed in the beach chair position. Care was ensured th at he was well positioned, adequately secured and padded. At this point, the right upper extremity was then prepped and draped in the usual sterile fashion. A deltopectoral approach was used and taken down to the skin with a #15 blade scalpel. Cephalic vein was transported medially. At this point, blunt dissection with Phillips scissors was used to come to the overlying subscapular tendon and bursal tissue. Any perforating bleeders were cauterized with Bovie to obtain hemostasis. Once the bursa was seen, it was removed with a Rongeur and subscapular tendon could be easily visualized. At this point, the rotator cuff in the subacromial region was evaluated. Patient had a greater than 4 part comminuted proximal humerus fracture with multiple displaced fragments. Careful dissection of humeral head which was in axilla near the nerve and vessel. The biceps tendon was intact. Biceps tenodesis was done to the pec minor. At this point, the subscapular tendon was then taken off using Bovie cautery and Metzenbaum scissors. Protection of axillary nerve was done while subscap and capsule fully releaed. It was from the capsule to have a two layered repair at closure. The capsule was also reflected posterior. At this point, the glenoid surface could be easily visualized. The arm was adequately positioned. An oscillating saw was used to make the head articular cut using guide to get a clear surface based on her fracture. This was done at the margin of the articular surface with the anatomic neck. This was taken down to appropriate level until this articular surface was adequately removed. At this point, the intramedullary canal and cancellous bone could be easily visualized. The opening hand reamers were then used and this was advanced to a size that had a good fit. Under direct visualization, this was performed easily. This was then removed. A trial component was then impacted into place, which did fit well and appeared adequately secured. We then turned our attention to glenoid. Batman retractor placed posteroinferi manish on glenoid. Subscap was mobilized wtih protection the axillary nerve with palpation. Hood was place between subscap and gelnoid. A bent vera was placed just above the the biceps tendon on the glenoid. Labrum was removed and capsule was released. We then placed glenoid drill guide and steinmann pin according to CT for correct version. We reamed glenoid down to bleeding cancellous bone. Glenoid irrigataed and glenoid component placed. 4 locking screws placed. Correct glenosphere offset determined and glenosphere impacted. Stand humeral tray and liner trialed with good IR/ER/FF and stability with only 1 mm shuck. Trial liner removed. Humerus trial removed. Correct humeral implant impacted, I then placed two distal screws to hold stem in place along with tray and liner. Stability was appropriate. Subscap was not able to be repaired. Wound was irrigated. Deltopectoral interval closed with 0-vicryl followed by 2-0 and constance for skin followed by sylke dressing, Aquacel dressing placed. Specimen: Right proximal humerus Condition Good Disposition Still a Patient SALEEM ROWLAND MD Mar 13, 2025 15:41
[2025-03-13] MEDS: ceFAZolin 1GM/50ML 50 ML IV SCH (18:25)
[2025-03-14] VITALS (9 sets, daily range): BP systolic 104–131; BP diastolic 56–88; PULSE 65–102; RESP 16–20; TEMP 96.4–98.1; O2SAT 97–100
--- NOTE | 2025-03-14 08:07 | DVHPN2 ---
Progress Note - Dictate Date Seen: Mar 14, 2025 Medical Necessity Reason Pt with a Central, PICC or Fol: No vital signs Vital Sign Date Time Temp Pulse Resp B/P (MAP) Pulse Ox O2 Delivery O2 Flow Rate FiO2 03/14/25 05:00 96.4 100 17 131/69 (89) 100 96.4 03/13/25 20:00 Room Air* 0 21 Total Intake and Output 03/13/25 03/13/25 03/14/25 15:00 23:00 07:00 Intake Total 1100 ml 460 ml 300 ml Balance 1100 ml 460 ml 300 ml medications Current Medications Medications Dose Ordered Sig/Carolann Route Start Time Stop Time Status Last Admin Dose Admin Acetaminophen/ Hydrocodone Bitart 1 tab Q4HP PRN PO 03/11/25 16:30 03/14/25 05:28 1 TAB Ondansetron HCl 4 mg Q4HP PRN IV 03/11/25 16:30 Acetaminophen 650 mg Q6HP PRN PO 03/11/25 16:30 Nitroglycerin 0.4 mg Q5MINP PRN SL 03/11/25 16:30 Pantoprazole Sodium 40 mg DAILY IV 03/12/25 10:00 03/12/25 09:12 40 MG Hydromorphone HCl 0.4 mg Q6HP PRN IV 03/11/25 16:30 03/13/25 06:35 0.4 MG Diphenhydramine HCl 25 mg Q6HP PRN IV 03/11/25 16:30 Hydralazine HCl 10 mg Q6HP PRN IV 03/11/25 16:30 03/13/25 08:05 10 MG Lactated Ringer's 1,000 ml @ 50 mls/hr Q20H IV 03/11/25 16:30 03/12/25 14:00 50 MLS/HR Losartan Potassium 25 mg DAILY PO 03/12/25 10:00 03/12/25 09:15 25 MG Diltiazem HCl 180 mg DAILY PO 03/12/25 10:00 03/12/25 09:15 180 MG Sertraline HCl 100 mg BID PO 03/11/25 22:00 03/13/25 22:47 100 MG Sotalol HCl 80 mg BID PO 03/12/25 22:00 03/13/25 22:50 80 MG Digoxin 0.125 mg DAILY PO 03/13/25 10:00 Cefepime HCl 50 ml @ 12.5 mls/hr DAILY IV 03/14/25 10:00 Sodium Chloride 10 ml Q8HR IV 03/13/25 14:00 03/14/25 06:11 10 ML Cefazolin Sodium 50 ml @ 50 mls/hr Q8H IV 03/13/25 18:30 03/14/25 11:29 03/14/25 02:59 50 MLS/HR laboratory and microbiology Laboratory Tests 03/12/25 06:33 Test 03/12/25 06:33 Range/Units Serum Glucose 116 H 74-106 mg/dL Assessment/Plan Patient is a 74-year-old female who presented to hospital with right shoulder fracture. Few days before presentation, the patient had a fall/mechanical fall and suffered injury to the right shoulder. She presented to [facility] and got a sling. Later presented to outside primary care physician and was transferred to our facility to have orthopedic surgery on the shoulder fracture/dislocation. Patient is known to our practice from outside and before. Does have history of persistent atrial fibrillation. Cardiology is involved for cardiac aspects of care. She also has history of Watchman (was put in June 2024) and is on aspirin as outpatient. Denies chest pains/palpitations/shortness of breath. Mostly complains of discomfort/swelling of the right shoulder/right upper extremity. Not in acute distress. Lying flat in bed. Morbidly obese. No JVD. Mucosa is pink and wet. Gross swelling/hematoma seen in the right upper shoulder to the right arm. Lungs are clear to auscultation. Not using accessory muscles of breathing. Cardiac: Irregular, tachycardic. Systolic murmur 2/6 in the apex is heard. Abdomen is soft. There is no gross mass. Bowel sound is positive. No hepatomegaly. Extremities do not reveal edema in the lower extremities. Past medical history includes obesity, hypertension, DJD of right knee, peripheral artery disease, GERD, persistent atrial fibrillation, old history of TIA, anxiety/depression, history of kidney stones/kidney cyst, fatty liver, status post cholecystectomy/ and appendectomy. She did have Watchman device in June 2024. Echocardiogram of October 2024 (performed in the office) revealed preserved left ventricular systolic function and no specific valvular disease. Nuclear stress test of April 2024 (performed as outpatient) revealed fixed defect with no ischemia. Ejection fraction was 80%. As outpatient, the patient takes digoxin/sotalol/diltiazem Hemoglobin: 13.3 - 12.2 Creatinine: 0.87 - 0.65 Potassium: 3.5 - 3.3 AST/ALT: 125/102 Digoxin level: <0.14 Right shoulder x-ray revealed: FINDINGS/IMPRESSION: Comminuted and displaced humeral head fracture with anterior inferior shoulder dislocation. Chest x-ray revealed: IMPRESSION: No acute cardiopulmonary disease. Shoulder CT revealed: IMPRESSION: 1. Significantly displaced comminuted right proximal humeral fracture. 2. Inferior medial significant displacement of the majority of the humeral head fragment. 3. Subsequent proximal migration of the distal humeral shaft. Right shoulder xry revealed: FINDINGS/IMPRESSION: Postsurgical changes from right shoulder arthroplasty. Telemetry reveals: Atrial fibrillation with RVR. Later: moderate ventricular response Echocardiogram revealed: Left ventricle: Left ventricle is normal-sized with normal systolic function. LVEF was around 61%. There was no gross wall motion abnormality. Moderate right ventricular enlargement was observed. Right ventricular systolic function was normal. Left atrium was mildly enlarged. Right atrium was moderately enlarged. Aortic valve: Aortic valve was trileaflet. There was no aortic insufficiency/stenosis. There was mild tricuspid/mitral regurgitation. Pulmonary valve was not well visualized. Right ventricular systolic pressure was assessed at 45 mm Hg. IVC was dilated. Patient is a 74-year-old female who presented after mechanical fall with right shoulder fracture/dislocation. Does have baseline history of atrial fibrillation for which has had Watchman device and is off anticoagulation. Usually takes aspirin as outpatient. Does have persistent AFib. As outpatient, the patient is on sotalol/diltiazem and aspirin. Patient does have atrial fibrillation with RVR, on arrival, later rate: controlled. Cardiac-monsivais, the patient is relatively optimized for orthopedic surgery. Status post mechanical fall Right shoulder fracture/dislocation Persistent AFib AFib with RVR Status post Watchman device Old history of TIA Obesity Depression s/p right reverse total shoulder arthroplasty by ortho Cardiac suggestion for management: Manage on telemetry Follow-up on electrolytes and kidney function tests and correct abnormalities. Keep potassium above 4 and magnesium above 2 Continue Sotalol Continue digoxin Pain management as per primary team/orthopedic Consider DVT prophylaxis (Lovenox 30 mg BID): as per Orthopaedic Cardiac-monsivais, the patient is moderate risk patient for moderate risk orthopedic surgery. Cardiac-monsivais, you can proceed with orthopedic surgery under appropriate intra and postoperative hemodynamic monitoring. Avoid hypotension Further evaluation and management depends on the above and clinical course A total of 55 minutes was spent reviewing the patient record, examining the patient, making a diagnostic and therapeutic plan, discussing this plan with medical personnel, following up on diagnostic studies and following the patient for clinical stability excluding any and all procedures. At least 50% of this time was spent in direct, [id number] contact. Thank you for allowing me to participate in this patient's care. Further recommendations will depend on patient's clinical course. Please do not hesitate to contact me if you have any questions or concerns. This medical document was created using electronic medical record system with [employer] computerized dictation system. Although this document has been carefully reviewed, there may still be some phonetic and typographical errors. These areas are purely typographical due to the imperfection of the software programs, and do not reflect any compromise in the patient's medical care. Plan discussed with: Patient, Other (nurse) DAMIEN GAMEZ MD Mar 14, 2025 08:07
--- NOTE | 2025-03-14 10:04 | DVHPN2 ---
Progress Note - Dictate Date Seen: Mar 14, 2025 Medical Necessity Reason Pt with a Central, PICC or Fol: No vital signs Vital Sign Date Time Temp Pulse Resp B/P (MAP) Pulse Ox O2 Delivery O2 Flow Rate FiO2 03/14/25 09:20 98.1 94 19 122/74 (90) 100 98.1 03/13/25 20:00 Room Air* 0 21 Total Intake and Output 03/13/25 03/13/25 03/14/25 15:00 23:00 07:00 Intake Total 1100 ml 460 ml 300 ml Balance 1100 ml 460 ml 300 ml medications Current Medications Medications Dose Ordered Sig/Carolann Route Start Time Stop Time Status Last Admin Dose Admin Acetaminophen/ Hydrocodone Bitart 1 tab Q4HP PRN PO 03/11/25 16:30 03/14/25 05:28 1 TAB Ondansetron HCl 4 mg Q4HP PRN IV 03/11/25 16:30 Acetaminophen 650 mg Q6HP PRN PO 03/11/25 16:30 Nitroglycerin 0.4 mg Q5MINP PRN SL 03/11/25 16:30 Pantoprazole Sodium 40 mg DAILY IV 03/12/25 10:00 03/12/25 09:12 40 MG Hydromorphone HCl 0.4 mg Q6HP PRN IV 03/11/25 16:30 03/13/25 06:35 0.4 MG Diphenhydramine HCl 25 mg Q6HP PRN IV 03/11/25 16:30 Hydralazine HCl 10 mg Q6HP PRN IV 03/11/25 16:30 03/13/25 08:05 10 MG Lactated Ringer's 1,000 ml @ 50 mls/hr Q20H IV 03/11/25 16:30 03/12/25 14:00 50 MLS/HR Losartan Potassium 25 mg DAILY PO 03/12/25 10:00 03/12/25 09:15 25 MG Diltiazem HCl 180 mg DAILY PO 03/12/25 10:00 03/12/25 09:15 180 MG Sertraline HCl 100 mg BID PO 03/11/25 22:00 03/13/25 22:47 100 MG Sotalol HCl 80 mg BID PO 03/12/25 22:00 03/13/25 22:50 80 MG Digoxin 0.125 mg DAILY PO 03/13/25 10:00 Cefepime HCl 50 ml @ 12.5 mls/hr DAILY IV 03/14/25 10:00 Sodium Chloride 10 ml Q8HR IV 03/13/25 14:00 03/14/25 06:11 10 ML Cefazolin Sodium 50 ml @ 50 mls/hr Q8H IV 03/13/25 18:30 03/14/25 11:29 03/14/25 02:59 50 MLS/HR Enoxaparin Sodium 30 mg BID SC 03/14/25 10:00 objective General Appearance: alert, no distress HEENT: EOMI, PERRLA, normal external inspect of ears, no icterus, no nasal drainage Neck: no carotid bruit, no jugular venous distention (JVD), no lymphadenopathy Chest: normal thorax Respiratory: clear to auscultation, normal air movement Cardiovascular: regular rate and rhythm, no diastolic murmur, no jugular venous distention (JVD), no rub, no systolic murmur Abdominal: soft, no hepatomegaly, no mass, no splenomegaly, no tenderness Genitourinary: grossly normal external Musculoskeletal: no joint tenderness, no swelling Extremities: normal pulses, no calf tenderness, no clubbing, no cyanosis, no edema Skin: no bruising, no jaundice, no rash Neurological: alert, No focal deficit laboratory and microbiology Laboratory Tests 03/12/25 06:33 Test 03/12/25 06:33 Range/Units Serum Glucose 116 H 74-106 mg/dL Problem List 1. Fall Monitor 2. Right shoulder fracture Monitor, orthopedic consult, hold anticoagulation for surgery 3. Morbid obesity Monitor 4. Benign essential HTN Monitor, cardiac consult, cardiac diet Assessment/Plan Subjective Patient is awake and alert. Objective Patient is status post right shoulder ORIF by Dr. Saunders. Patient had a rapid response postoperatively. She received a racemic epi. Patient was transitioned from a mask to a nasal cannula. Patient states she still feels somewhat short of breath. Plan Continue physical therapy evaluation. 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 Orthopedic recommendations appreciated for discharge. DC planning. Plan discussed with: Patient, Other RIOS GARNER NP Mar 14, 2025 10:04
[2025-03-14] MEDS: CEFEPIME 1GM/ 50ML 50 ML IV SCH (10:11)
[2025-03-14] MEDS: ENOXAPARIN SOD 30 MG/0.3 ML SYRINGE SC SCH (10:14)
[2025-03-14] MEDS ORDERED: SEVOFLURANE 250 ML SOL IN ONE (13:29)
[2025-03-15] VITALS (9 sets, daily range): BP systolic 100–140; BP diastolic 68–88; PULSE 80–93; RESP 16–18; TEMP 36.8; O2SAT 99–100
--- NOTE | 2025-03-15 06:41 | DVHPN2 ---
Progress Note - Dictate Date Seen: Mar 15, 2025 Medical Necessity Reason Pt with a Central, PICC or Fol: No vital signs Vital Sign Date Time Temp Pulse Resp B/P (MAP) Pulse Ox O2 Delivery O2 Flow Rate FiO2 03/15/25 05:00 98.6 80 17 138/69 (92) 99 98.6 03/14/25 20:00 Nasal Cannula* 4 36 Total Intake and Output 03/14/25 03/14/25 03/15/25 15:00 23:00 07:00 Intake Total 100 ml 750 ml 468 ml Output Total 800 ml Balance 100 ml -50 ml 468 ml medications Current Medications Medications Dose Ordered Sig/Carolann Route Start Time Stop Time Status Last Admin Dose Admin Acetaminophen/ Hydrocodone Bitart 1 tab Q4HP PRN PO 03/11/25 16:30 03/14/25 21:41 1 TAB Ondansetron HCl 4 mg Q4HP PRN IV 03/11/25 16:30 Acetaminophen 650 mg Q6HP PRN PO 03/11/25 16:30 Nitroglycerin 0.4 mg Q5MINP PRN SL 03/11/25 16:30 Pantoprazole Sodium 40 mg DAILY IV 03/12/25 10:00 03/14/25 10:10 40 MG Hydromorphone HCl 0.4 mg Q6HP PRN IV 03/11/25 16:30 03/13/25 06:35 0.4 MG Diphenhydramine HCl 25 mg Q6HP PRN IV 03/11/25 16:30 Hydralazine HCl 10 mg Q6HP PRN IV 03/11/25 16:30 03/13/25 08:05 10 MG Lactated Ringer's 1,000 ml @ 50 mls/hr Q20H IV 03/11/25 16:30 03/12/25 14:00 50 MLS/HR Losartan Potassium 25 mg DAILY PO 03/12/25 10:00 03/14/25 10:12 25 MG Diltiazem HCl 180 mg DAILY PO 03/12/25 10:00 03/14/25 10:14 180 MG Sertraline HCl 100 mg BID PO 03/11/25 22:00 03/14/25 22:59 100 MG Sotalol HCl 80 mg BID PO 03/12/25 22:00 03/14/25 23:00 80 MG Digoxin 0.125 mg DAILY PO 03/13/25 10:00 03/14/25 10:13 0.125 MG Cefepime HCl 50 ml @ 12.5 mls/hr DAILY IV 03/14/25 10:00 03/14/25 10:11 12.5 MLS/HR Sodium Chloride 10 ml Q8HR IV 03/13/25 14:00 03/15/25 06:19 10 ML Enoxaparin Sodium 30 mg BID SC 03/14/25 10:00 03/14/25 23:00 30 MG laboratory and microbiology Laboratory Tests 03/12/25 06:33 Test 03/12/25 06:33 Range/Units Serum Glucose 116 H 74-106 mg/dL Assessment/Plan Patient is a 74-year-old female who presented to hospital with right shoulder fracture. Few days before presentation, the patient had a fall/mechanical fall and suffered injury to the right shoulder. She presented to [facility] and got a sling. Later presented to outside primary care physician and was transferred to our facility to have orthopedic surgery on the shoulder fracture/dislocation. Patient is known to our practice from outside and before. Does have history of persistent atrial fibrillation. Cardiology is involved for cardiac aspects of care. She also has history of Watchman (was put in June 2024) and is on aspirin as outpatient. Denies chest pains/palpitations/shortness of breath. Mostly complains of discomfort/swelling of the right shoulder/right upper extremity. Not in acute distress. Lying flat in bed. Morbidly obese. No JVD. Mucosa is pink and wet. Gross swelling/hematoma seen in the right upper shoulder to the right arm. Lungs are clear to auscultation. Not using accessory muscles of breathing. Cardiac: Irregular, tachycardic. Systolic murmur 2/6 in the apex is heard. Abdomen is soft. There is no gross mass. Bowel sound is positive. No hepatomegaly. Extremities do not reveal edema in the lower extremities. Past medical history includes obesity, hypertension, DJD of right knee, peripheral artery disease, GERD, persistent atrial fibrillation, old history of TIA, anxiety/depression, history of kidney stones/kidney cyst, fatty liver, status post cholecystectomy/ and appendectomy. She did have Watchman device in June 2024. Echocardiogram of October 2024 (performed in the office) revealed preserved left ventricular systolic function and no specific valvular disease. Nuclear stress test of April 2024 (performed as outpatient) revealed fixed defect with no ischemia. Ejection fraction was 80%. As outpatient, the patient takes digoxin/sotalol/diltiazem Hemoglobin: 13.3 - 12.2 Creatinine: 0.87 - 0.65 Potassium: 3.5 - 3.3 AST/ALT: 125/102 Digoxin level: <0.14 Right shoulder x-ray revealed: FINDINGS/IMPRESSION: Comminuted and displaced humeral head fracture with anterior inferior shoulder dislocation. Chest x-ray revealed: IMPRESSION: No acute cardiopulmonary disease. Shoulder CT revealed: IMPRESSION: 1. Significantly displaced comminuted right proximal humeral fracture. 2. Inferior medial significant displacement of the majority of the humeral head fragment. 3. Subsequent proximal migration of the distal humeral shaft. Right shoulder xry revealed: FINDINGS/IMPRESSION: Postsurgical changes from right shoulder arthroplasty. Telemetry reveals: Atrial fibrillation with RVR. Later: moderate ventricular response Echocardiogram revealed: Left ventricle: Left ventricle is normal-sized with normal systolic function. LVEF was around 61%. There was no gross wall motion abnormality. Moderate right ventricular enlargement was observed. Right ventricular systolic function was normal. Left atrium was mildly enlarged. Right atrium was moderately enlarged. Aortic valve: Aortic valve was trileaflet. There was no aortic insufficiency/stenosis. There was mild tricuspid/mitral regurgitation. Pulmonary valve was not well visualized. Right ventricular systolic pressure was assessed at 45 mm Hg. IVC was dilated. Patient is a 74-year-old female who presented after mechanical fall with right shoulder fracture/dislocation. Does have baseline history of atrial fibrillation for which has had Watchman device and is off senior care anticoagulation. Usually takes aspirin as outpatient. Does have persistent AFib. As outpatient, the patient is on sotalol/diltiazem and aspirin. Patient does have atrial fibrillation with RVR, on arrival, later rate: controlled. Cardiac-monsivais, the patient is relatively optimized for orthopedic surgery. Status post mechanical fall Right shoulder fracture/dislocation Persistent AFib AFib with RVR Status post Watchman device Old history of TIA Obesity Depression s/p right reverse total shoulder arthroplasty by ortho Cardiac suggestion for management: Manage on telemetry Follow-up on electrolytes and kidney function tests and correct abnormalities. Keep potassium above 4 and magnesium above 2 Continue Sotalol Continue digoxin Pain management as per primary team/orthopedic Consider DVT prophylaxis (Lovenox 30 mg BID): as per Orthopaedic Cardiac-monsviais, the patient is moderate risk patient for moderate risk orthopedic surgery. Cardiac-monsivais, you can proceed with orthopedic surgery under appropriate intra and postoperative hemodynamic monitoring. Avoid hypotension. s/p surgery. Cardiac monsivais, is stable and can be followed as outpatient Further evaluation and management depends on the above and clinical course A total of 55 minutes was spent reviewing the patient record, examining the patient, making a diagnostic and therapeutic plan, discussing this plan with medical personnel, following up on diagnostic studies and following the patient for clinical stability excluding any and all procedures. At least 50% of this time was spent in direct, [id number] contact. Thank you for allowing me to participate in this patient's care. Further recommendations will depend on patient's clinical course. Please do not hesitate to contact me if you have any questions or concerns. This medical document was created using electronic medical record system with [employer] computerized dictation system. Although this document has been carefully reviewed, there may still be some phonetic and typographical errors. These areas are purely typographical due to the imperfection of the software programs, and do not reflect any compromise in the patient's medical care. Plan discussed with: Patient, Other (nurse) DAMIEN GAMEZ MD Mar 15, 2025 06:41
--- NOTE | 2025-03-15 17:54 | DVHDS2 ---
Discharge Summary Date of Admission Mar 11, 2025 at 16:19 Date of Discharge: Mar 15, 2025 Admitting Diagnosis Right shoulder fracture Labs/Diagnostic Data: Laboratory Results Test 03/12/25 08:28 03/12/25 06:33 Prothrombin Time 10.4 sec (9.3-11.8) Prothrombin Time INR 0.98 (0.9-1.15) White Blood Count 7.0 10^3/uL (4.4-10.8) Red Blood Count 4.18 10^6/uL (4.0-5.20) Hemoglobin 12.2 g/dL (12.2-16.2) Hematocrit 37.0 % (36.0-46.0) Mean Corpuscular Volume 88.4 fL (80.0-100.0) Mean Corpuscular Hemoglobin 29.2 pg (28.0-32.0) Mean Corpuscular Hemoglobin Concent 33.0 g/dL (32.0-36.0) Red Cell Distribution Width 15.1 % (11.8-14.3) Platelet Count 182 10^3/uL (140-450) Mean Platelet Volume 7.5 fL (6.9-10.8) Neutrophils (%) (Auto) 72.0 % (37.0-80.0) Lymphocytes (%) (Auto) 15.4 % (10.0-50.0) Monocytes (%) (Auto) 9.3 % (0.0-12.0) Eosinophils (%) (Auto) 2.9 % (0.0-7.0) Basophils (%) (Auto) 0.4 % (0.0-2.0) Neutrophils # (Auto) 5.0 10 ^3/uL (1.6-8.6) Lymphocytes # (Auto) 1.1 10 ^3/uL (0.4-5.4) Monocytes # (Auto) 0.6 10 ^3/uL (0-1.3) Eosinophils # (Auto) 0.2 10 ^3/uL (0-0.8) Basophils # (Auto) 0 10 ^3/uL (0-0.2) Nucleated Red Blood Cells 0.0 % Sodium Level 142 mmol/L (136-145) Potassium Level 3.3 mmol/L (3.5-5.1) Chloride Level 106 mmol/L (98-107) Carbon Dioxide Level 27 mmol/L (20-31) Anion Gap 9 (5-15) Blood Urea Nitrogen 25 mg/dL (9-23) Creatinine 0.65 mg/dL (0.550-1.02) Glomerular Filtration Rate Calc 93 mL/min (>90) BUN/Creatinine Ratio 38.5 (10.0-20.0) Serum Glucose 116 mg/dL (74-106) Calcium Level 9.1 mg/dL (8.7-10.4) Total Bilirubin 1.3 mg/dL (0.2-1.0) Aspartate Amino Transferase (AST) 125 U/L (13-40) Alanine Aminotransferase (ALT) 102 U/L (7-40) Alkaline Phosphatase 113 U/L (46-116) Total Protein 6.2 g/dL (5.7-8.2) Albumin 3.7 g/dL (3.2-4.8) Digoxin Level < 0.14 ng/mL (0.8-2) Other Laboratory Tests 03/12/25 06:33 Brief Hx & Hospital Course: Patient was admitted for right shoulder fracture she is S/P ORIF by Dr. Saunders. 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 Patient needs continued physical therapy and we will be discharge to SNF at [facility]. Patient is to follow up with Orthopedic within two weeks of discharge. Patient was sent home on Lovenox for 14 days for DVT prophylaxis. Patient was in agreement with discharge. Condition at Discharge: Good Final Diagnosis/Problems List 1. Fall 2. Right shoulder fracture 3. Morbid obesity 4. Benign essential HTN Discharge Disposition: Custodial Facility Discharge Instruct/Medications Diet: Cardiac 2g Na,low cholest Activity: No Restrictions, As Tolerated Follow Up/Referral: follow up with Dr Saunders within 2 weeks Scheduled Diltiazem HCl Coated Beads (Diltiazem Hydrochloride E), 1 CAP PO DAILY, (Reported) Lorazepam (Lorazepam), 1 TAB PO TID, (Reported) Losartan Potassium (Losartan Potassium), 1 TAB PO DAILY, (Reported) Pantoprazole Sodium Sesquihydr (Protonix), 40 MG PO DAILY, (Reported) Sertraline Hcl (Sertraline Hcl), 1 TAB PO BID, (Reported) Discharge Statement: "Patient was advised to return to the ER or call 911 if any headaches, dizziness, shortness of breath, chest pain, abdominal pain, bleeding, fevers, or worsening of medical condition. Patient was counseled about treatment plan, medications, possible side effects, patientverbalized understanding. All questions were answered to the best of my ability. This discharge took greater then 30 minutes in planning, reviewing documentation, counseling the patient, and discussing with other team members." ASSESSMENT ASSESSMENT Assessment 1. Fall 2. Right shoulder fracture 3. Morbid obesity 4. Benign essential HTN [facility]IYAD SOLER [facility] Mar 15, 2025 17:53
== END 2025-03-15 18:53 | DRG 483 ==
LOC: ER 13:17 → OVERFLOW 16:19 → TELE-EAST 22:55
PROVIDERS: ADMIT Nurse Practitioner; ATTEND Nurse Practitioner
PROC: 0LS30ZZ Reposition Right Upper Arm Tendon, Open Approach (ICD-10-PCS; 2025-03-13)
PROC: 0RRJ00Z Replacement of Right Shoulder Joint with Reverse Ball and Socket Synthetic Substitute, Open Approach (ICD-10-PCS; principal; 2025-03-13 10:45)
DX: S42.291A Other displaced fracture of upper end of right humerus, initial encounter for closed fracture (principal); I48.19 Other persistent atrial fibrillation; E66.01 Morbid (severe) obesity due to excess calories; I10 Essential (primary) hypertension; I34.0 Nonrheumatic mitral (valve) insufficiency; K76.0 Fatty (change of) liver, not elsewhere classified; I73.9 Peripheral vascular disease, unspecified; Z68.37 Body mass index [BMI] 37.0-37.9, adult; K21.9 Gastro-esophageal reflux disease without esophagitis; F41.9 Anxiety disorder, unspecified; Z95.818 Presence of other cardiac implants and grafts; Z90.49 Acquired absence of other specified parts of digestive tract; Z87.891 Personal history of nicotine dependence; Z87.442 Personal history of urinary calculi; Z86.73 Personal history of transient ischemic attack (TIA), and cerebral infarction without residual deficits; Z81.8 Family history of other mental and behavioral disorders; Z80.0 Family history of malignant neoplasm of digestive organs; Z79.82 Long term (current) use of aspirin; Z88.5 Allergy status to narcotic agent; Z79.01 Long term (current) use of anticoagulants; W01.0XXA Fall on same level from slipping, tripping and stumbling without subsequent striking against object, initial encounter; Y93.89 Activity, other specified; Y92.89 Other specified places as the place of occurrence of the external cause; Y99.8 Other external cause status
CPT/HCPCS: 36415; 71045; 73020; 73030; 73200; 80048; 80053; 80162; 85025; 85610; 86850; 86900; 86901; 87081; 93005; 93306; 94640; 96374; 97163; A4565; G0378; J1100; J1885; J2250; J2405; J2470; J2704; J3490